=== PATIENT | female | born 1965 ===

== ENCOUNTER 2017-12-12 09:09 | Outpatient (CLI) | payer BC ==
--- NOTE | 2017-12-12 10:58 | Diagnostic Imaging Report ---
Indication:Abdominal pain Technique: Grayscale and duplex Doppler imaging of the abdomen performed. Comparison: None Findings: The liver, demonstrated part of the pancreas, gallbladder, aorta and IVC, both kidneys appear unremarkable. The spleen is enlarged measuring 16 cm. There is a tiny right renal cyst 6 mm in size. There is no biliary ductal dilatation identified. Doppler evaluation of the main portal vein shows patency. There is no ascites. No hydronephrosis seen. Impression: Splenomegaly Right renal cyst
== END 2017-12-12 11:09 | disposition home or self-care (01) ==
LOC: ULS 09:09
DX: R10.9 Unspecified abdominal pain (principal); N20.0 Calculus of kidney; R16.1 Splenomegaly, not elsewhere classified
CPT/HCPCS: 76700